=== PATIENT | male | born 1975 | race Hispanic/Latino ===

== ENCOUNTER 2017-07-03 15:05 | Emergency (ER) | payer OTHER ==
[2017-07-03 15:12] VITALS: BP 159/59; PULSE 79; RESP 18; TEMP 97.4; O2SAT 100
--- NOTE | 2017-07-03 15:26 | C.PDOC ---
History Of Present Illness 41 year old male presents to the ER requesting detox from heroin. He denies physical complaints at this time, and has no SI/HI. Patient does admit to feeling depressed however. Time Seen by Provider: 07/03/17 15:20 Chief Complaint (Nursing): Substance Abuse History Per: Patient History/Exam Limitations: no limitations Suicide/Self Injury Attempted (Context): None Modifying Factor(s): Narcotics Involuntary Hold By: None Past Medical History Reviewed: Historical Data, Nursing Documentation, Vital Signs Vital Signs: Last Vital Signs Temp 97.4 F L 07/03/17 15:09 Pulse 79 07/03/17 15:09 Resp 18 07/03/17 15:09 BP 159/59 H 07/03/17 15:09 Pulse Ox 100 07/03/17 15:29 - Medical History PMH: Asthma Family History: States: No Known Family Hx - Social History Hx Alcohol Use: No Hx Substance Use: Yes - Immunization History Hx Tetanus Toxoid Vaccination: No Hx Influenza Vaccination: No Hx Pneumococcal Vaccination: No Review Of Systems Except As Marked, All Systems Reviewed And Found Negative. Psych: Positive for: Depression, Other (heroin dependence). Negative for: Suicidal ideation Physical Exam - Physical Exam Appears: Well, Non-toxic, No Acute Distress Skin: Normal Color, Warm, Dry Eye(s): bilateral: Normal Inspection Oral Mucosa: Moist Cardiovascular: Rhythm Regular Respiratory: Normal Breath Sounds, No Rales, No Rhonchi, No Wheezing Neurological/Psych: Oriented x3 Gait: Steady ED Course And Treatment O2 Sat by Pulse Oximetry: 100 (room air) Pulse Ox Interpretation: Normal Progress Note: Spoke with crisis counselor, there are no current beds available. Patient requested list of other detox facilities, which I obtained from crisis. When I returned to bedside, patient had eloped from ED. Disposition Counseled Patient/Family Regarding: Diagnosis, Need For Followup - Disposition Referrals: [facility] [Outside] Disposition: HOME/ ROUTINE Disposition Time: 15:40 Condition: STABLE Instructions: Drug Abuse and Drug Addiction (DC) Forms: [facility] (Slovenian) Print Language: CITIZEN OF [place] - Clinical Impression Clinical Impression: Heroin dependence - Scribe Statement The provider has reviewed the documentation as recorded by the Scribe Pilo Dejesus All medical record entries made by the Scribe were at my direction and personally dictated by me. I have reviewed the chart and agree that the record accurately reflects my personal performance of the history, physical exam, medical decision making, and the department course for this patient. I have also personally directed, reviewed, and agree with the discharge instructions and disposition.
== END 2017-07-03 15:43 | disposition home or self-care (01) ==
LOC: C.ER 15:05
DX: F11.20 Opioid dependence, uncomplicated (principal)